=== PATIENT | female | born 1960 | race Caucasian/White ===

== ENCOUNTER 2020-12-29 11:08 | Day surgery (SDC) | payer BC ==
[~2020-12-29] VITALS: Ht 167.6 cm; Wt 99.0 kg
--- NOTE | 2020-12-29 08:44 | NUR ---
PATIENT COVID VACCINE CONFIRMED, COPY IN CHART
[~2020-12-29 11:08] MED LIST: ASPI81TA52 PO; DOCUMENT DATE & TIME OF BETA-BLOCKER PO ONE; ESCI-8 PO; HYDR25TA4 PO; LEVO15TA6 PO; METO-395 PO; POTA10TA36 PO; cefazolin/dext.iso 2gm/100ml 100 ML IV ONE; famotidine 20mg tablet PO ONE; ringers solution, lacted 1,000 ML IV SCH
[2020-12-29] MEDS ORDERED: LIDOcaine 0.5% (5mg/ml) 50ml vial ONE (12:01)
[2020-12-29] MEDS ORDERED: proCHLORperazine 10 MG/2 ml inj IV PRN (12:10)
[2020-12-29] MEDS ORDERED: ondansetron/PF 4mg/2ml inj IV PRN (12:10)
[2020-12-29] MEDS ORDERED: labetalol 20mg/4ml (5mg/ml) syringe IV PRN (12:10)
[2020-12-29] MEDS ORDERED: morphine 2 MG/ML inj. syringe IV PRN (12:10)
[2020-12-29] MEDS ORDERED: ringers solution, lacted 1,000 ML IV SCH (12:10)
[2020-12-29] MEDS ORDERED: hydrALAZINE 20mg/ml inj. IV PRN (12:10)
[2020-12-29] MEDS ORDERED: morphine 4 MG/ML inj SYRINge IV PRN (12:10)
[2020-12-29] MEDS ORDERED: HYDROmorphone/PF 0.2 MG/ML SYRINGE IV PRN ×2 (12:10)
[2020-12-29] MEDS ORDERED: acetaminophen 1,000mg/100ml IV 100 ML IV PRN (12:10)
[2020-12-29 12:55] VITALS: BP 155/90
[2020-12-29 13:02] LABS: BASOPHILS # (AUTO) 0.1 X10'3 (0-0.2); BASOPHILS % (AUTO) 1.4 % (0-1); EOSINOPHILS # (AUTO) 0.1 X10'3 (0-0.9); EOSINOPHILS % (AUTO) 1.8 % (0-6); HEMATOCRIT 37.2 % (35.0-45.0); HEMOGLOBIN 12.3 g/dl (12.0-16.0); LYMPHOCYTES # (AUTO) 1.4 X10'3 (1.1-4.8); LYMPHOCYTES % (AUTO) 24.8 % (21-51); MEAN CORPUSCULAR HGB CONC 33.1 g/dL (33.0-36.5); MEAN CORPUSCULAR VOLUME 93.6 FL (78-98); MEAN PLATELET VOLUME 7.9 FL (7.4-10.4); MONOCYTES # (AUTO) 0.5 X10'3 (0-0.9); NEUTROPHILS # (AUTO) 3.6 X10'3 (1.8-7.7); PLATELET COUNT 266 X10'3 (140-440); RED BLOOD COUNT 3.97 X10'6 (4.20-5.60); RED CELL DISTRIBUTION WIDTH 13.6 % (11.5-14.5); WHITE BLOOD COUNT 5.7 X10'3 (4.5-11.0)
[2020-12-29 13:20] LABS: ALANINE AMINOTRANSFERASE 34 U/L (12-78); ALBUMIN 3.4 G/DL (3.4-5.0); ALBUMIN/GLOBULIN RATIO 0.9 (1.1-1.5); ALKALINE PHOSPHATASE 86 IU/L (46-116); ANION GAP 10 (8-16); ASPARTATE AMINO TRANSFERASE 27 U/L (10-37); BILIRUBIN,TOTAL 0.4 MG/DL (0.1-1.0); BLOOD UREA NITROGEN 15 MG/DL (7-18); BUN/CREATININE RATIO 19.2 (6.6-38.0); CALCIUM 9.1 MG/DL (8.5-10.1); CHLORIDE 103 MMOL/L (99-107); CREATININE 0.78 MG/DL (0.40-0.90); GLUCOSE 101 MG/DL (70-104); POTASSIUM 3.8 MMOL/L (3.5-5.1); SODIUM 141 MMOL/L (135-145); TOTAL CARBON DIOXIDE 28.3 MMOL/L (24-32); TOTAL PROTEIN 7.4 G/DL (6.4-8.2); eGFR 75 ML/MIN
[2020-12-29] MEDS ORDERED: midazolam 1 mg/ML 2ml injection ONE (13:57)
[2020-12-29] MEDS ORDERED: fentaNYL/PF 50MCG/1 ML 2ML syringe ONE (13:57)
[2020-12-29] MEDS ORDERED: propofol inj 20 ML IV ONE (14:20)
[2020-12-29 14:36] VITALS: BP 135/73
--- NOTE | 2020-12-29 14:36 | NUR ---
Received from OR via , accompanied by Anesthesiologist DR VASQUEZ and report given by Anesthesiolgist. AWAKE AND KIRSTY PAIN. VITALS STABLE. DRESSING DI. FINGERS WARM AND PINK.
[2020-12-29 14:46] VITALS: BP 141/72
[2020-12-29 14:56] VITALS: BP 152/75
--- NOTE | 2020-12-29 15:16 | NUR ---
AWAKE AND ORIENTED. VITALS STABLE. DRESSING DI. KIRSTY PAIN. HOME WITH HER DAUGHTER AT THIS TIME.
== END 2020-12-29 15:16 | disposition home or self-care (01) ==
LOC: PAS 11:08
PROVIDERS: ATTEND Orthopaedic Surgery Hand Surgery
DX: S63.286A Dislocation of proximal interphalangeal joint of right little finger, initial encounter (principal); G47.33 Obstructive sleep apnea (adult) (pediatric); I10 Essential (primary) hypertension; F32.9 Major depressive disorder, single episode, unspecified; Z79.899 Other long term (current) drug therapy; Z79.82 Long term (current) use of aspirin; Z88.2 Allergy status to sulfonamides; Z95.0 Presence of cardiac pacemaker; Z98.890 Other specified postprocedural states; X58.XXXA Exposure to other specified factors, initial encounter; Y93.89 Activity, other specified; Y92.89 Other specified places as the place of occurrence of the external cause; Y99.8 Other external cause status
CPT/HCPCS: 26776; 36415; 80053; 85025; A6222; C1713; J2001; J2250; J2704; J3010; J7120; A4215; A4618; A6449; A7000

== ENCOUNTER 2021-11-25 07:06 | Day surgery (SDC) | payer MEDICARE ==
[2021-11-24 13:43] LABS: BASOPHILS # (AUTO) 0.1 X10'3 (0-0.2); BASOPHILS % (AUTO) 0.8 % (0-1); EOSINOPHILS # (AUTO) 0.1 X10'3 (0-0.9); EOSINOPHILS % (AUTO) 1.3 % (0-6); HEMATOCRIT 38.1 % (35.0-45.0); HEMOGLOBIN 12.9 g/dl (12.0-16.0); LYMPHOCYTES # (AUTO) 1.4 X10'3 (1.1-4.8); LYMPHOCYTES % (AUTO) 21.4 % (21-51); MEAN CORPUSCULAR HGB CONC 33.9 g/dL (33.0-36.5); MEAN CORPUSCULAR VOLUME 94.5 FL (78-98); MEAN PLATELET VOLUME 7.5 FL (7.4-10.4); MONOCYTES # (AUTO) 0.5 X10'3 (0-0.9); MONOCYTES % (AUTO) 6.9 % (2-12); NEUTROPHILS # (AUTO) 4.6 X10'3 (1.8-7.7); NEUTROPHILS % (AUTO) 69.6 % (42-75); PLATELET COUNT 260 X10'3 (140-440); RED BLOOD COUNT 4.03 X10'6 (4.20-5.60); RED CELL DISTRIBUTION WIDTH 13.4 % (11.5-14.5); WHITE BLOOD COUNT 6.6 X10'3 (4.5-11.0)
[2021-11-24 13:56] LABS: APTT 25 SECONDS (22-32)
[2021-11-24 14:04] LABS: ALBUMIN 3.5 G/DL (3.4-5.0); ANION GAP 10 (8-16); BLOOD UREA NITROGEN 20 MG/DL (7-18); BUN/CREATININE RATIO 24.4 (6.6-38.0); CHLORIDE 102 MMOL/L (99-107); CREATININE 0.82 MG/DL (0.40-0.90); GLUCOSE 123 MG/DL (70-104); MAGNESIUM 2.1 MG/DL (1.5-2.4); POTASSIUM 3.6 MMOL/L (3.5-5.1); SODIUM 139 MMOL/L (135-145); TOTAL CARBON DIOXIDE 26.9 MMOL/L (24-32); eGFR 70 ML/MIN
[~2021-11-25] VITALS: Ht 172.7 cm; Wt 105.4 kg
[2021-11-25] VITALS (12 sets, daily range): BP systolic 106–141; BP diastolic 45–67
[~2021-11-25 07:06] MED LIST changes: -DOCUMENT DATE & TIME OF BETA-BLOCKER PO ONE; -POTA10TA36 PO; +POTA10TA37 PO; -cefazolin/dext.iso 2gm/100ml 100 ML IV ONE; -famotidine 20mg tablet PO ONE; -ringers solution, lacted 1,000 ML IV SCH
[2021-11-25] MEDS ORDERED: cefazolin/dext.iso 2gm/50ml 50 ML IV ONE (07:25)
[2021-11-25] MEDS ORDERED: ADAL40KI SUBCUT (07:35)
[2021-11-25] MEDS ORDERED: BIOT10004 PO (07:57)
[2021-11-25] MEDS ORDERED: MULT-1085 PO (07:57)
[2021-11-25] MEDS ORDERED: LACT1CAP65 PO (07:57)
[2021-11-25] MEDS ORDERED: MAGN400C PO (07:57)
[2021-11-25] MEDS ORDERED: CHOL-4 PO (07:57)
[2021-11-25] MEDS ORDERED: FISH1CAP15 PO (07:57)
[2021-11-25] MEDS ORDERED: LUTE1CAP4 PO (07:57)
[2021-11-25] MEDS ORDERED: VITE400C PO (07:57)
[2021-11-25] MEDS ORDERED: ceFAZolin 1000mg inj ONE (08:29)
[2021-11-25] MEDS ORDERED: fentaNYL/PF 50MCG/1 ML 2ML syringe ONE ×2 (08:29→10:28)
[2021-11-25] MEDS ORDERED: ceFAZolin 2gm in dextrose, iso 50 ML IV ONE (08:29)
[2021-11-25] MEDS ORDERED: midazolam 1 mg/ML 2ml injection ONE ×2 (08:29→09:48)
[2021-11-25] MEDS ORDERED: LIDOcaine 1% w/EPI 1:100,000 30ml vial (MDV) ONE ×2 (08:30→09:44)
[2021-11-25] MEDS ORDERED: iohexol 350 MG/ML 50ML vial IV ONE (09:18)
[2021-11-25] MEDS ORDERED: VANCOMYCIN 1GM/200ML IVPB 200 ML IV ONE (12:00)
[2021-11-25] MEDS ORDERED: HYDROcodone/acetaminophen 5mg/325mg tablet PO PRN (12:05)
[2021-11-25] MEDS ORDERED: HYDROcodone/acetaminophen 10/325mg tab PO PRN (12:05)
== END 2021-11-25 18:00 | disposition home or self-care (01) ==
LOC: SSTAY O 07:06
PROVIDERS: ATTEND Internal Medicine Cardiovascular Disease
DX: T82.190A Other mechanical complication of cardiac electrode, initial encounter (principal); I10 Essential (primary) hypertension; E78.5 Hyperlipidemia, unspecified; G47.33 Obstructive sleep apnea (adult) (pediatric); E66.3 Overweight; Z68.34 Body mass index [BMI] 34.0-34.9, adult; Z79.82 Long term (current) use of aspirin; Z79.899 Other long term (current) drug therapy; Z79.01 Long term (current) use of anticoagulants; Z98.890 Other specified postprocedural states; Z88.2 Allergy status to sulfonamides; Z88.8 Allergy status to other drugs, medicaments and biological substances; Z82.49 Family history of ischemic heart disease and other diseases of the circulatory system; Y83.8 Other surgical procedures as the cause of abnormal reaction of the patient, or of later complication, without mention of misadventure at the time of the procedure; Y92.89 Other specified places as the place of occurrence of the external cause
CPT/HCPCS: 33217; 33235; 36415; 71046; 80048; 83735; 85025; 85610; 85730; 93005; 99152; 99153; C1894; C1898; J0690; J2250; J3010; J3370; J3490; Q9967; 33234; A4565; A4620; A6258

== ENCOUNTER → 2024-09-10 | Outpatient (CLI) | payer OTHER ==
[~2024-09-10] MED LIST changes: +ADAL40KI SUBCUT; +BIOT10004 PO; +CHOL-4 PO; +FISH1CAP15 PO; +LACT1CAP65 PO; +LUTE1CAP4 PO; +MAGN400C PO; +MULT-1085 PO; +POTA-206 PO; -POTA10TA37 PO; +VITE400C PO
== END | disposition home or self-care (01) ==
LOC: RAD 14:39
PROVIDERS: ATTEND Chiropractor
DX: M50.30 Other cervical disc degeneration, unspecified cervical region (principal); M48.03 Spinal stenosis, cervicothoracic region; M46.02 Spinal enthesopathy, cervical region; M99.01 Segmental and somatic dysfunction of cervical region; M60.9 Myositis, unspecified; M99.02 Segmental and somatic dysfunction of thoracic region; M25.511 Pain in right shoulder
CPT/HCPCS: 72125